=== PATIENT | male | born 1985 | race Caucasian/White ===

== ENCOUNTER 2021-06-21 16:52 | Emergency (ER) | payer OTHER ==
[2021-06-21] MEDS ORDERED: CLINDAMYCIN HC150 MG PO (19:02)
[2021-06-21] MEDS ORDERED: ZESTRIL10 MG PO (19:02)
== END 2021-06-21 19:20 | disposition home or self-care (01) ==
LOC: ER1 16:52
DX: K03.81 Cracked tooth (principal); K02.9 Dental caries, unspecified; K05.10 Chronic gingivitis, plaque induced; I10 Essential (primary) hypertension; Z76.0 Encounter for issue of repeat prescription; Z88.0 Allergy status to penicillin
CPT/HCPCS: 99282